=== PATIENT | male | born 1950 | race Caucasian/White ===

== ENCOUNTER 2020-11-28 17:03 | Inpatient (IN) | payer OTHER ==
[2020-11-28] MEDS ORDERED: BISMUTH SUBSALICYLATE 524 MG/30 ML PO PRN (20:25)
[2020-11-28] MEDS ORDERED: MAGNESIUM CITRATE 300 ML BOTTLE PO PRN (20:25)
[2020-11-28] MEDS ORDERED: P-EPHED 60MG/TRIPROLIDI 2.5MG TABLET PO PRN (20:25)
[2020-11-28] MEDS ORDERED: ACETAMINOPHEN 325 MG TABLET (FP) PO PRN ×2 (20:25)
[2020-11-28] MEDS ORDERED: ONDANSETRON *ODT* 4 MG TABLET SL PRN (20:25)
[2020-11-28] MEDS ORDERED: IBUPROFEN 400 MG TABLET (FP) PO PRN (20:25)
[2020-11-28] MEDS ORDERED: guaiFENesin 200 MG/10 ML 10 ML UNIT-DOSE CUPS PO PRN (20:25)
[2020-11-28] MEDS ORDERED: MENTHOL/PHENOL 1 EACH UD MM PRN (20:25)
[2020-11-28] MEDS ORDERED: DICYCLOMINE HCL 10 MG CAPSULE PO PRN (20:25)
[2020-11-28] MEDS ORDERED: MAG HYDROX/AL HYDROX/SIMETH 30 ML UNIT-DOSE CUP PO PRN (20:25)
[2020-11-28] MEDS ORDERED: MAGNESIUM HYDROX 2400MG/30ML ORAL SUSPENSION 30 ML CUP PO PRN (20:25)
[2020-11-28] MEDS ORDERED: NALOXONE HCL 0.4 MG/ML VIAL IM PRN (20:25)
[2020-11-28] MEDS ORDERED: NICOTINE POLACRILEX 2 MG GUM BUC PRN (20:25)
[2020-11-28] MEDS ORDERED: NALOXONE (NARCAN) HCL 4 MG/0.1 ML SPRAY NS PRN (20:25)
[2020-11-28 21:29] VITALS: BMI 24.5
[2020-11-28] MEDS ORDERED: diazePAM 5 MG TABLET ONE (22:41)
[2020-11-28] MEDS: diazePAM 5 MG TABLET PO PRN (22:43)
[2020-11-29] MEDS: MELATONIN 5 MG TABLETS PO SCH ×2 (02:45→22:14)
[2020-11-29] MEDS: diazePAM 5 MG TABLET PO SCH ×5 (02:45→22:15)
[2020-11-29] MEDS: THIAMINE HCL 100 MG TABLET (FP) PO SCH ×2 (02:45→22:14)
[2020-11-29] MEDS: diazePAM 5 MG TABLET PO PRN ×2 (02:54→20:38)
[2020-11-29] MEDS ORDERED: cloNIDine HCL 0.1 MG TABLET PO ONE (06:45)
[2020-11-29] MEDS: METHOCARBAMOL 500 MG TABLET PO PRN ×2 (10:19→17:47)
[2020-11-29] MEDS: PRENATAL VITAMINS W/ FOLIC ACID TABLET (FP) PO SCH (10:19)
[2020-11-29] MEDS: NICOTINE 14 MG/24 HOURS TOPICAL PATCH TD SCH (10:22)
[2020-11-29] MEDS ORDERED: METHADONE HCL 10 MG TABLET PO ONE (11:50)
[2020-11-29] MEDS ORDERED: METHADONE 40 MG, METHADONE 30 MG PO ONE (12:10)
[2020-11-29] MEDS ORDERED: METHADONE HCL 10 MG TABLET ONE (12:23)
[2020-11-29] MEDS ORDERED: METHADONE HCL 40 MG DISPERSABLE TABLET ONE (12:24)
[2020-11-29 13:34] LABS: HEMATOCRIT 40.8 % (35.4-49); HEMOGLOBIN 13.8 GM/dL (11.7-16.9); MCH 32.4 pg (25.7-33.7); MCHC 33.7 g/dl (32.0-35.9); MEAN CELL VOLUME 96.1 fl (80-96); MEAN PLT VOLUME 8.4 fl (7.5-11.1); PLATELET COUNT 126 10^3/uL (134-434); RBC 4.25 M/mm3 (4.00-5.60); RDW 13.5 % (11.9-15.9); WHITE BLOOD COUNT 3.6 K/mm3 (4.0-10.0)
[2020-11-29 13:44] LABS: CALCIUM 8.9 mg/dL (8.5-10.1)
[2020-11-29 13:46] LABS: ALBUMIN 3.6 g/dl (3.4-5.0); BLOOD UREA NITROGEN 17.4 mg/dL (7-18)
[2020-11-29 13:52] LABS: BILIRUBIN,TOTAL 0.8 mg/dL (0.2-1); TOT PROT 7.4 g/dl (6.4-8.2)
[2020-11-29] MEDS: traZODone HCL 50 MG TABLET (FP) PO SCH (22:14)
[2020-11-30] MEDS ORDERED: METHADONE HCL 40 MG DISPERSABLE TABLET ONE (04:58)
[2020-11-30] MEDS ORDERED: METHADONE HCL 10 MG TABLET ONE (04:58)
[2020-11-30] MEDS ORDERED: METHADONE HCL 40 MG DISPERSABLE TABLET PO SCH (06:00)
[2020-11-30] MEDS: diazePAM 5 MG TABLET PO SCH ×3 (06:04→22:15)
[2020-11-30] MEDS: METHADONE 40 MG, METHADONE 30 MG PO SCH (06:05)
[2020-11-30] MEDS: METHOCARBAMOL 500 MG TABLET PO PRN (10:07)
[2020-11-30] MEDS: PRENATAL VITAMINS W/ FOLIC ACID TABLET (FP) PO SCH (10:07)
[2020-11-30] MEDS: NICOTINE 14 MG/24 HOURS TOPICAL PATCH TD SCH (10:08)
[2020-11-30] MEDS: diazePAM 5 MG TABLET PO PRN (18:19)
[2020-11-30] MEDS: MELATONIN 5 MG TABLETS PO SCH (22:15)
[2020-11-30] MEDS: traZODone HCL 50 MG TABLET (FP) PO SCH (22:15)
[2020-11-30] MEDS: THIAMINE HCL 100 MG TABLET (FP) PO SCH (22:15)
[2020-12-01] MEDS ORDERED: METHADONE HCL 10 MG TABLET ONE (04:16)
[2020-12-01] MEDS ORDERED: METHADONE HCL 40 MG DISPERSABLE TABLET ONE (04:16)
[2020-12-01] MEDS: diazePAM 5 MG TABLET PO SCH ×2 (05:55→17:41)
[2020-12-01] MEDS: METHADONE 40 MG, METHADONE 30 MG PO SCH (05:56)
[2020-12-01] MEDS: diazePAM 5 MG TABLET PO PRN (09:02)
[2020-12-01] MEDS: PRENATAL VITAMINS W/ FOLIC ACID TABLET (FP) PO SCH (09:02)
[2020-12-01] MEDS: NICOTINE 14 MG/24 HOURS TOPICAL PATCH TD SCH (09:04)
[2020-12-01 11:39] LABS: HEMATOCRIT 41.6 % (35.4-49); HEMOGLOBIN 13.6 GM/dL (11.7-16.9); MCH 31.8 pg (25.7-33.7); MCHC 32.8 g/dl (32.0-35.9); MEAN CELL VOLUME 97.2 fl (80-96); MEAN PLT VOLUME 8.9 fl (7.5-11.1); PLATELET COUNT 139 10^3/uL (134-434); RBC 4.28 M/mm3 (4.00-5.60); RDW 13.4 % (11.9-15.9); WHITE BLOOD COUNT 3.9 K/mm3 (4.0-10.0)
[2020-12-01] MEDS: THIAMINE HCL 100 MG TABLET (FP) PO SCH (22:24)
[2020-12-01] MEDS: traZODone HCL 50 MG TABLET (FP) PO SCH (22:24)
[2020-12-01] MEDS: MELATONIN 5 MG TABLETS PO SCH (22:24)
[2020-12-01] MEDS: METHOCARBAMOL 500 MG TABLET PO PRN (22:26)
[2020-12-02] MEDS ORDERED: METHADONE HCL 10 MG TABLET ONE (04:15)
[2020-12-02] MEDS ORDERED: METHADONE HCL 40 MG DISPERSABLE TABLET ONE (04:15)
[2020-12-02] MEDS: METHADONE 40 MG, METHADONE 30 MG PO SCH (05:56)
[2020-12-02] MEDS ORDERED: diazePAM 5 MG TABLET PO ONE (06:00)
[2020-12-02 09:20] VITALS: BP 125/67; PULSE 72; TEMP 96.9
== END 2020-12-02 09:45 | disposition home or self-care (01) | DRG 897 ==
LOC: YASAS 17:03 → Y3N 22:45
PROVIDERS: ADMIT Allergy & Immunology; ATTEND Allergy & Immunology
PROC: HZ2ZZZZ Detoxification Services for Substance Abuse Treatment (ICD-10-PCS; principal; 2020-11-28)
DX: F10.230 Alcohol dependence with withdrawal, uncomplicated (principal); F11.20 Opioid dependence, uncomplicated; F13.20 Sedative, hypnotic or anxiolytic dependence, uncomplicated; F19.282 Other psychoactive substance dependence with psychoactive substance-induced sleep disorder; G40.89 Other seizures; F17.210 Nicotine dependence, cigarettes, uncomplicated; F10.24 Alcohol dependence with alcohol-induced mood disorder; F32.9 Major depressive disorder, single episode, unspecified; Z56.0 Unemployment, unspecified
CPT/HCPCS: 36415; 80053; 85027; 86780; 93005; 93010; C9803; J0735; U0003; U0005

== ENCOUNTER 2022-10-04 04:16 | Day surgery (SDC) | payer OTHER ==
[2022-10-03 17:39] VITALS: BMI 25.8
[~2022-10-04 04:16] MED LIST: ACETAMINOPHEN 500 MG TABLET (FP) PO PRN; BUPIVACAINE HCL/PF 0.75% 10 ML VIAL NR ONE; LIDOCAINE HCL 1% PRESERVATIVE FREE - 30ML VIAL IJ ONE
[2022-10-04] MEDS ORDERED: BUPIVACAINE HCL/PF 0.75% 10 ML VIAL NR ONE (11:24)
[2022-10-04] MEDS ORDERED: LIDOCAINE HCL 1% PRESERVATIVE FREE - 30ML VIAL IJ ONE (11:24)
[2022-10-04] MEDS ORDERED: BUPIVACAINE HCL/PF 0.75% 10 ML VIAL ONE (13:24)
[2022-10-04 17:26] VITALS: BP 129/70; PULSE 67; RESP 18; TEMP 98.2
== END 2022-10-04 12:33 | disposition home or self-care (01) ==
LOC: JASU-SURG 04:16
PROVIDERS: ATTEND Pain Medicine Pain Medicine
PROC: 3E0T33Z Introduction of Anti-inflammatory into Peripheral Nerves and Plexi, Percutaneous Approach (ICD-10-PCS; 2022-10-04)
PROC: 3E0T3BZ Introduction of Anesthetic Agent into Peripheral Nerves and Plexi, Percutaneous Approach (ICD-10-PCS; principal; 2022-10-04 13:30)
DX: M47.816 Spondylosis without myelopathy or radiculopathy, lumbar region (principal)
CPT/HCPCS: 76000-TC-FY

== ENCOUNTER → 2022-11-05 | Day surgery (SDC) | payer OTHER ==
[2022-10-31 13:45] VITALS: BMI 25.8
[~2022-11-05] MED LIST changes: +BUPIVACAINE HCL/PF 0.75% 10 ML VIAL ONE; +DEXAMETHASONE SOD PHOSPHATE 10 MG/1 ML VIAL ONE; -LIDOCAINE HCL 1% PRESERVATIVE FREE - 30ML VIAL IJ ONE; +LIDOCAINE HCL 1% PRESERVATIVE FREE - 30ML VIAL INF ONE; +LIDOCAINE HCL/PF 1% SDV 5ML VIAL ONE
== END | disposition home or self-care (01) ==
LOC: JASU-SURG 04:23
PROVIDERS: ATTEND Pain Medicine Pain Medicine
DX: Z53.8 Procedure and treatment not carried out for other reasons (principal)
CPT/HCPCS: J1100

== ENCOUNTER 2024-02-14 07:38 | Emergency (ER) | payer OTHER ==
[2024-02-14 07:44] VITALS: RESP 16; BMI 26.6
[2024-02-14 09:00] LABS: HEMATOCRIT 36.1 % (35.4-49); MCH 28.4 pg (25.7-33.7); MCHC 33.2 g/dl (32.0-35.9); MEAN CELL VOLUME 85.7 fl (80-96); MEAN PLT VOLUME 8.1 fl (7.5-11.1); PLATELET COUNT 195 10^3/uL (134-434); RBC 4.21 M/mm3 (4.00-5.60); RDW 14.1 % (11.9-15.9); WHITE BLOOD COUNT 5.3 K/mm3 (4.0-10.0)
[2024-02-14] MEDS ORDERED: ACETAMINOPHEN INJECTION 100 ML ONE (09:09)
[2024-02-14] MEDS: ACETAMINOPHEN 1000 MG/100 ML BAG IVPB ONE (09:14)
[2024-02-14 09:33] LABS: CHLORIDE 105 mmol/L (98-107); POTASSIUM 4.6 mmol/L (3.5-5.1); SODIUM 138 mmol/L (136-145)
[2024-02-14 09:35] LABS: ALBUMIN 3.7 g/dl (3.4-5.0); ANION GAP 5 mmol/L (4-13); BLOOD UREA NITROGEN 22.7 mg/dL (7-18); CALCIUM 9.4 mg/dL (8.5-10.1); CO2 28 mmol/L (21-32); GLUCOSE,RANDOM 112 mg/dL (74-106)
[2024-02-14 09:38] LABS: ERYTHROCYTE SEDIMENTATION RATE 33 mm/hr (0-20); SGOT/AST 16 U/L (15-37); SGPT/ALT 16 U/L (13-61)
[2024-02-14 09:39] LABS: CREATININE 1.2 mg/dL (0.55-1.3)
[2024-02-14 09:40] LABS: BILIRUBIN,TOTAL 0.4 mg/dL (0.2-1); TOT PROT 7.5 g/dl (6.4-8.2)
[2024-02-14 09:41] LABS: ALK PHOS 73 U/L (45-117)
[2024-02-14 11:26] VITALS: BP 135/66; PULSE 65; TEMP 97.7
[2024-02-14] MEDS: SODIUM CHLORIDE 1,000 ML IV STA (11:27)
[2024-02-14 12:24] LABS: HIV INTERPRETATION NEGATIVE (NEGATIVE)
[2024-02-14] MEDS ORDERED: ceFAZolin SODIUM 1 GM VIAL ONE (14:08)
[2024-02-14] MEDS: CEFAZOLIN 1 GM in DEXTROSE 5%-WATER - 50 ML IVPB ONE (14:15)
== END 2024-02-14 16:48 | disposition home or self-care (01) ==
LOC: JER 07:38
PROC: 3E03329 Introduction of Other Anti-infective into Peripheral Vein, Percutaneous Approach (ICD-10-PCS; principal; 2024-02-14)
PROC: 3E033NZ Introduction of Analgesics, Hypnotics, Sedatives into Peripheral Vein, Percutaneous Approach (ICD-10-PCS; 2024-02-14)
PROC: 3E0337Z Introduction of Electrolytic and Water Balance Substance into Peripheral Vein, Percutaneous Approach (ICD-10-PCS; 2024-02-14)
DX: L02.612 Cutaneous abscess of left foot (principal); L03.116 Cellulitis of left lower limb; I73.9 Peripheral vascular disease, unspecified; M79.675 Pain in left toe(s)
CPT/HCPCS: 36415; 73630-TC-LT; 75635-TC; 80053; 83605; 85027; 85651; 86140; 86803; 87389; 87522; 93005; 93010; 96361; 96365; 96375; 99285-25; J0131; Q9967

== ENCOUNTER 2024-02-21 10:49 | Inpatient (IN) | payer OTHER ==
[2024-02-21 12:45] LABS: BASO % 0.9 % (0-2.0); EOS % 4.8 % (0-4.5); HEMATOCRIT 33.2 % (35.4-49); HEMOGLOBIN 10.9 GM/dL (11.7-16.9); LYMPH % 41.4 % (8-40); MCH 28.7 pg (25.7-33.7); MCHC 32.8 g/dl (32.0-35.9); MEAN CELL VOLUME 87.3 fl (80-96); MEAN PLT VOLUME 7.6 fl (7.5-11.1); MONO % 7.5 % (3.8-10.2); NEUT % 45.4 % (42.8-82.8); PLATELET COUNT 190 10^3/uL (134-434); RDW 14.3 % (11.9-15.9)
[2024-02-21] MEDS ORDERED: HEPARIN INFUSION - 25,000 UNITS/500 ML INFUS.BAG IVPB ONE (12:46)
[2024-02-21] MEDS ORDERED: HEPARIN NA (PORCINE) 5,000 UNITS/ML 1ML VIAL ONE (12:46)
[2024-02-21] MEDS ORDERED: morphine SULFATE 4 MG/ML VIAL ONE (12:47)
[2024-02-21 12:55] LABS: INR 0.93 (0.83-1.09); PROTHROMBIN TIME (PATIENT) 10.7 SEC (9.7-13.0)
[2024-02-21 12:57] LABS: ACTIVATED PTT 29.8 SECONDS (25.2-36.5)
[2024-02-21] MEDS: morphine CARPU-JECT 4 MG/1 ML DISP.SYRIN IVPUSH ONE (13:04)
[2024-02-21] MEDS: HEPARIN NA (PORCINE) 5,000 UNITS/ML 1ML VIAL IVPUSH ONE (13:06)
[2024-02-21] MEDS: HEPARIN - 25,000 UNIT in SODIUM CHLORIDE 495 ML IV SCH ×2 (13:06→13:07)
[2024-02-21 13:21] LABS: ALBUMIN 3.5 g/dl (3.4-5.0); BLOOD UREA NITROGEN 18.8 mg/dL (7-18); CALCIUM 9.2 mg/dL (8.5-10.1)
[2024-02-21 13:24] LABS: CREATININE 1.3 mg/dL (0.55-1.3)
[2024-02-21 13:26] LABS: BILIRUBIN,TOTAL 0.4 mg/dL (0.2-1); TOT PROT 6.8 g/dl (6.4-8.2)
[2024-02-21] MEDS ORDERED: HEPARIN NA (PORCINE) 5,000 UNITS/ML 1ML VIAL IVPUSH PRN ×4 (13:48→14:34)
[2024-02-21] MEDS ORDERED: HEPARIN INFUSION - 500 ML IV SCH (14:00)
[2024-02-21] MEDS ORDERED: HEPARIN NA (PORCINE) 5,000 UNITS/ML 1ML VIAL IVPUSH ONE (14:06)
[2024-02-21] MEDS: HEPARIN INFUSION - 25,000 UNITS/500 ML INFUS.BAG IVPB SCH (14:15)
[2024-02-21] MEDS ORDERED: ACETAMINOPHEN 500 MG TABLET (FP) PO PRN (14:33)
[2024-02-21] MEDS: LACTATED RINGERS SOLUTION 1,000 ML/1,000 ML INFUS.BAG IV SCH (14:47)
[2024-02-21 23:18] VITALS: BMI 22.9
[2024-02-22] MEDS: morphine SULFATE 4 MG/ML VIAL IVPUSH PRN (02:00)
[2024-02-22 08:21] LABS: HEMATOCRIT 32.5 % (35.4-49); MCH 28.9 pg (25.7-33.7); MCHC 33.8 g/dl (32.0-35.9); MEAN CELL VOLUME 85.6 fl (80-96); PLATELET COUNT 166 10^3/uL (134-434); RDW 14.3 % (11.9-15.9)
[2024-02-22 08:51] LABS: POTASSIUM 4.6 mmol/L (3.5-5.1)
[2024-02-22 08:54] LABS: BLOOD UREA NITROGEN 17.1 mg/dL (7-18)
[2024-02-22 08:56] LABS: CREATININE 1.2 mg/dL (0.55-1.3)
[2024-02-22 09:25] LABS: ANISOCYTOSIS 0; HELMET CELLS 0; HOWELL-JOLLY BODIES 0; MACROCYTOSIS 0; OVALOCYTE 0; ROULEAU 0; SICKELED CELLS 0; TARGET CELLS 0; TEAR DROP CELLS 0; TOXIC GRANULATION 0
[2024-02-22] MEDS: hydrALAZINE HCL 50 MG TABLET (FP) PO ONE (11:55)
[2024-02-22] MEDS ORDERED: LIDOCAINE HCL 1%, 10 MG/ML (20ML VIAL) ONE (14:05)
[2024-02-22] MEDS ORDERED: HEPARIN NA (PORCINE) 5,000 UNITS/ML 1ML VIAL ONE ×2 (14:05→15:25)
[2024-02-22] MEDS ORDERED: MIDAZOLAM HCL 2 MG/2 ML SINGLE DOSE VIAL ONE (14:11)
[2024-02-22] MEDS ORDERED: LIDOCAINE HCL/PF 2% SDV 5ML VIAL ONE (14:11)
[2024-02-22] MEDS ORDERED: PROPOFOL 20 ML ONE (14:11)
[2024-02-22] MEDS ORDERED: ceFAZolin SODIUM 1 GM VIAL ONE (15:04)
[2024-02-22] MEDS: ceFAZolin SODIUM 1 GM VIAL IVPB ONE (15:06)
[2024-02-22] MEDS: LIDOCAINE HCL 1%, 10 MG/ML (50 mL VIAL) INF ONE (15:12)
[2024-02-22] MEDS: GABAPENTIN 300 MG CAPSULE PO SCH ×2 (15:53→21:31)
[2024-02-22] MEDS ORDERED: morphine SULFATE 4 MG/ML VIAL IVPUSH PRN (16:14)
[2024-02-22] MEDS ORDERED: CLOPIDOGREL BISULFATE 75 MG TABLET (FP) ONE (16:17)
[2024-02-22] MEDS: CLOPIDOGREL BISULFATE 75 MG TABLET (FP) PO SCH (16:20)
[2024-02-22] MEDS: LACTATED RINGERS SOLUTION 1,000 ML/1,000 ML INFUS.BAG IV SCH (18:35)
[2024-02-22] MEDS ORDERED: methaDONE HCL 40 MG DISPERSABLE TABLET PO SCH (20:00)
[2024-02-22] MEDS: methaDONE HCL 40 MG DISPERSABLE TABLET PO SCH (20:15)
[2024-02-22] MEDS: LABETALOL HCL 200 MG TABLET (FP) PO SCH (21:30)
[2024-02-22] MEDS: ATORVASTATIN CA 80 MG TABLET (FP) PO SCH (21:30)
[2024-02-22] MEDS: hydrALAZINE HCL 50 MG TABLET (FP) PO SCH (21:30)
[2024-02-22] MEDS ORDERED: ATORVASTATIN CA 80 MG TABLET (FP) PO SCH (22:00)
[2024-02-22] MEDS ORDERED: hydrALAZINE HCL 50 MG TABLET (FP) PO SCH (22:00)
[2024-02-22] MEDS ORDERED: LABETALOL HCL 200 MG TABLET (FP) PO SCH (22:00)
[2024-02-23] MEDS ORDERED: methaDONE HCL 40 MG DISPERSABLE TABLET PO SCH (06:00)
[2024-02-23 08:25] LABS: HEMATOCRIT 30.9 % (35.4-49); HEMOGLOBIN 10.2 GM/dL (11.7-16.9); MCHC 32.9 g/dl (32.0-35.9); MEAN CELL VOLUME 88.4 fl (80-96); MEAN PLT VOLUME 7.9 fl (7.5-11.1); PLATELET COUNT 152 10^3/uL (134-434); RDW 14.2 % (11.9-15.9); WHITE BLOOD COUNT 5.9 K/mm3 (4.0-10.0)
[2024-02-23 08:34] LABS: POTASSIUM 4.6 mmol/L (3.5-5.1)
[2024-02-23 08:37] LABS: BLOOD UREA NITROGEN 13.1 mg/dL (7-18)
[2024-02-23 08:40] LABS: CREATININE 1.2 mg/dL (0.55-1.3)
[2024-02-23 08:41] LABS: PHOSPHOROUS 3.8 mg/dL (2.5-4.9)
[2024-02-23 08:42] LABS: BILIRUBIN,TOTAL 0.6 mg/dL (0.2-1); TOT PROT 6.1 g/dl (6.4-8.2)
[2024-02-23] MEDS ORDERED: QUEtiapine FUMARATE 25 MG TABLET ONE (09:31)
[2024-02-23] MEDS: SERTRALINE HCL 50 MG TABLET (FP) PO SCH (09:38)
[2024-02-23] MEDS: QUEtiapine FUMARATE 50 MG TABLET PO SCH (09:38)
[2024-02-23] MEDS: NICOTINE 14 MG/24 HOURS TOPICAL PATCH TD SCH (09:38)
[2024-02-23 09:44] VITALS: PULSE 70; TEMP 98.6
[2024-02-23] MEDS ORDERED: SERTRALINE HCL 50 MG TABLET (FP) PO SCH (10:00)
[2024-02-23] MEDS ORDERED: NICOTINE 14 MG/24 HOURS TOPICAL PATCH TD SCH (10:00)
[2024-02-23] MEDS ORDERED: QUEtiapine FUMARATE 50 MG TABLET PO SCH (10:00)
[2024-02-23] MEDS ORDERED: hydrALAZINE HCL 50 MG TABLET (FP) PO SCH (10:00)
[2024-02-23] MEDS: ACETAMINOPHEN 500 MG TABLET (FP) PO PRN (11:41)
[2024-02-23 15:15] VITALS: BP 153/64; RESP 19
== END 2024-02-23 15:49 | disposition home or self-care (01) | DRG 253 ==
LOC: JER 10:49 → JERBED 14:05 → J4S 21:18
PROVIDERS: ADMIT Internal Medicine; ATTEND Internal Medicine
PROC: 047U3ZZ Dilation of Left Peroneal Artery, Percutaneous Approach (ICD-10-PCS; 2024-02-22)
PROC: B40GYZZ Plain Radiography of Left Lower Extremity Arteries using Other Contrast (ICD-10-PCS; 2024-02-22)
PROC: B40DYZZ Plain Radiography of Aorta and Bilateral Lower Extremity Arteries using Other Contrast (ICD-10-PCS; 2024-02-22)
PROC: 047L3DZ Dilation of Left Femoral Artery with Intraluminal Device, Percutaneous Approach (ICD-10-PCS; principal; 2024-02-22 14:00)
DX: I73.9 Peripheral vascular disease, unspecified (principal); F11.20 Opioid dependence, uncomplicated; M79.672 Pain in left foot; I10 Essential (primary) hypertension; E78.5 Hyperlipidemia, unspecified; I77.1 Stricture of artery; F31.9 Bipolar disorder, unspecified; I99.8 Other disorder of circulatory system; Z87.891 Personal history of nicotine dependence
CPT/HCPCS: 36415; 75635-TC; 76000-TC-FY; 80048; 80053; 83735; 84100; 84484; 85025; 85027; 85610; 85730; 86850; 86900; 86901; 93005; 93010; 94760; 97116-GP; 97161-GP; 99291; C1725; C1760; C1876; J1644